=== PATIENT | male | born 2005 | race Caucasian/White ===

== ENCOUNTER 2024-10-31 07:34 | Emergency (ER) | payer OTHER, SELFPAY ==
[2024-10-31 07:40] VITALS: BP 133/84; PULSE 86; RESP 14; TEMP 36.8; O2SAT 100
--- NOTE | 2024-10-31 08:26 | ED_ITS ---
HPI - Wound/Laceration General Chief Complaint: Wound/Laceration Stated Complaint: possible stitches on right Thumb x 1 day Time Seen by Provider: 10/31/24 08:04 Source: patient Mode of arrival: Family Vehicle History of Present Illness HPI narrative: Subjective: Pt presents to the ER with a past medical history significant for no known medical conditions. Arianne, the patient, sustained a laceration to the R thumb approximately 12 hours ago while cutting [employer] sprouts with a serrated spatula. The injury occurred while the patient was on [place], which delayed their ability to seek immediate medical attention. The patient reports low pain, describing it as sore. Upon returning home, the patient applied a bandage to the wound but did not clean it with soap and water. The wound was rinsed off by medics at some point. The patient's tetanus shot is up to date. Related Data Allergies Allergy/AdvReac Type Severity Reaction Status Date / Time cephalexin (CEPHALEXIN) Allergy Unknown Unverified 10/31/24 07:50 Sulfa (Sulfonamide Allergy Unknown Unverified 10/31/24 07:50 Antibiotics) (SULFA (SULFONAMIDE ANTIBIOTICS)) Patient History Social History Smoking Status: Never smoker Smoking Status: Never smoker Exam Narrative Exam Narrative: R thumb - 1cm V shaped flap laceration on the extensor surface of the finger; no active bleeding; finger flexion and extension intact; no involvement of the nail; no FB Initial Vital Signs Initial Vital Signs: Vital Signs Temperature 98.2 F 10/31/24 07:40 Pulse Rate 86 10/31/24 07:40 Respiratory Rate 14 10/31/24 07:40 Blood Pressure 133/84 10/31/24 07:40 Pulse Oximetry 100 10/31/24 07:40 Oxygen Delivery Method Room Air 10/31/24 07:40 Course Vital Signs Vital signs: Vital Signs - 8 hr 10/31/24 07:40 Temperature 98.2 F Pulse Rate 86 Respiratory Rate 14 Blood Pressure 133/84 Pulse Oximetry 100 Oxygen Delivery Method Room Air MDM - Wound/Laceration MDM Narrative Medical decision making narrative: Pt interviewed and examined. Discussed treatment options and he would like skin adhesive as he has an aversion to needles. Finger soaked in Hibiclens x 15 minutes. 2 thin layers of skin adhesive applied. Finger splint applied for protection. Stable for discharge. Discharge Plan Departure Patient Disposition: Home Clinical Impression: Laceration of thumb Qualifiers: Encounter type: initial encounter Damage to nail status: without damage Foreign body presence: without foreign body Laterality: right Qualified Code(s): S61.011A - Laceration without foreign body of right thumb without damage to nail, initial encounter Activity Restrictions/Additional Instructions: Keep wound clean and dry. Glue should just come off on its own in a few days. Use finger splint to protect finger. Watch for signs of infection. Take Ibuprofen as needed for pain. Stand Alone Forms: Patient Portal/API
--- NOTE | 2024-10-31 08:41 | PC.NURSE ---
Cut finger with knife; pt states he did not wash hand.
[2024-10-31 08:42] VITALS: RESP 16
--- NOTE | 2024-10-31 08:43 | PC.NURSE ---
Aluminum finger splint applied to right thumb per md request
== END 2024-10-31 08:43 | disposition home or self-care (01) ==
PROVIDERS: Emergency Provider Emergency Medicine; Family Provider Nurse Practitioner
DX: S61.011A Laceration without foreign body of right thumb without damage to nail, initial encounter (principal)
CPT/HCPCS: 12001; 99281; 99282

== ENCOUNTER 2024-11-02 16:39 | Emergency (ER) | payer OTHER, SELFPAY ==
[2024-11-02 16:42] VITALS: BP 150/84; PULSE 87; RESP 16; TEMP 37.1; O2SAT 100; BMI 21.6
--- NOTE | 2024-11-02 18:04 | DI.RAD.S_ITS ---
PROCEDURE: XR FINGER RT MIN 2V INDICATIONS: wound infection TECHNIQUE: AP hand, 2 views of the 1st finger(s) acquired. COMPARISON: None. FINDINGS: Bones: No fractures or dislocations. No suspicious bony lesions. Soft tissues: No suspicious soft tissue calcifications. No soft tissue gas seen. No radiopaque foreign body. IMPRESSION: No acute bony abnormality. No radiopaque foreign body. Dictated by: Zeyad Hudson M.D. on 11/02/2024 at 18:45 Approved by: Zeyad Hudson M.D. on 11/02/2024 at 18:46
[2024-11-02 20:27] VITALS: BP 157/84; PULSE 116; RESP 16; O2SAT 100
--- NOTE | 2024-11-02 22:39 | ED.RECABL ---
HPI - Recheck/Abnormal Lab/Rx General Chief Complaint: Recheck/Abnormal Lab/Rx Stated Complaint: Rt thumb possible infection Time Seen by Provider: 11/02/24 22:26 Source: patient Mode of arrival: Ambulatory History of Present Illness HPI narrative: 27-year-old male sustained injury laceration dorsum left thumb night, presented Sunday morning here and had skin glue closure. Now having increasing pain and swelling to the dorsal right thumb. No drainage. Wearing his finger splint. No fevers or chills. Has anaphylaxis reaction to sulfa antibiotics. Not currently taking any antibiotics. Allergy to cephalexin also listed, patient does not seem to remember what the reaction might be. Related Data Previous Rx's ?Medication ?Instructions ?Recorded clindamycin HCl 300 mg capsule 300 mg PO Q6H Dental infection 7 11/02/24 days #28 caps doxycycline hyclate 100 mg tablet 100 mg PO BID #14 tabs 11/02/24 Allergies Allergy/AdvReac Type Severity Reaction Status Date / Time cephalexin (CEPHALEXIN) Allergy Unknown Verified 11/02/24 16:42 Sulfa (Sulfonamide Allergy Unknown Swelling Verified 11/02/24 16:42 Antibiotics) (SULFA of (SULFONAMIDE ANTIBIOTICS)) Lip/Tongue/Throat Exam Narrative Exam Narrative: GENERAL: Well-developed patient, in mild distress. HEAD: Atraumatic. Normocephalic. EYES: Pupils equal round and reactive. Extraocular motions intact. No scleral icterus. No injection or drainage. ENT: Nose without bleeding, purulent drainage. Airway patent. NECK: Trachea midline. Non tender CARDIOVASCULAR: Regular rate and rhythm without murmurs, gallops, or rubs. RESPIRATORY: Clear to auscultation. Breath sounds equal bilaterally. No wheezes, rales, or rhonchi. GASTROINTESTINAL: Abdomen soft, non-tender, nondistended. EXTREMITIES: Left thumb small laceration site repair closed with skin glue, central 2-3 mm area possible fluctuance, could not express any fluid. No subungual hematoma obvious. Slight erythema medial aspect thumb, could be pressure effect from spider-like metal-foam thumb splint that was being worn. BACK: Nontender without deformity or crepitance. No flank tenderness. NEURO: AOx3. Motor functions grossly nonfocal. SKIN: No rash or erythema of visible areas Initial Vital Signs Initial Vital Signs: Vital Signs Temperature 98.7 F 11/02/24 16:42 Pulse Rate 87 11/02/24 16:42 Respiratory Rate 16 11/02/24 16:42 Blood Pressure 150/84 H 11/02/24 16:42 Pulse Oximetry 100 11/02/24 16:42 Oxygen Delivery Method Room Air 11/02/24 16:42 Course Orders Ordered: ED Orders 11/02/24 18:04 XR finger RT min 2V Stat Discontinued Medications Cephalexin HCl (Cephalexin 250 Mg Capsule) 500 mg PO NOW ONE Stop: 11/02/24 22:53 Last Admin: 11/02/24 23:00 Dose: Not Given Documented By: NICOLE Clindamycin HCl (Clindamycin 150 Mg Capsule) 300 mg PO NOW ONE Stop: 11/02/24 22:56 Last Admin: 11/02/24 23:11 Dose: 300 mg Documented By: NICOLE Doxycycline Hyclate (Doxycycline Hyclate 100 Mg Tablet) 100 mg PO NOW ONE Stop: 11/02/24 22:53 Last Admin: 11/02/24 23:11 Dose: 100 mg Documented By: NICOLE Vital Signs Vital signs: Vital Signs - 8 hr 11/02/24 20:27 11/02/24 23:25 Pulse Rate 116 H 62 Respiratory Rate 16 16 Blood Pressure 157/84 H 122/80 Pulse Oximetry 100 98 Oxygen Delivery Method Room Air Room Air MDM - Recheck/Abnormal Lab/Rx MDM Narrative Medical decision making narrative: Left thumb laceration recent repair with increasing pain, possible scant amount small 2-3 mm fluctuance. Offered incision and drainage, declined. Offered needle aspiration, declined. Not currently on antibiotics. X-ray without obvious fracture/foreign body. Trial of oral antibiotics. History of allergies to cephalexin and sulfa antibiotics. Oral dose of clindamycin and doxycycline given, prescription sent for both antibiotics 7 day course. Advised wound check in the next couple of days at his home [facility]. Might require incision and drainage. Return precautions discussed. Discharge Plan Departure Patient Disposition: Home Clinical Impression: Cellulitis of left thumb Activity Restrictions/Additional Instructions: Recent skin glue laceration repair left thumb, with subsequent redness and swelling. Suspected infection. We discussed opening of the wound with an incision, hold for now. X-ray did not show any obvious bony injury or foreign body material. Trial of antibiotics for now. History of sulfa allergy, and also cephalexin as listed as an allergy on your medication list. Oral antibiotic clindamycin and doxycycline antibiotics given 1st dose in the emergency department, with prescription sent to your [facility] pharmacy for further doses. Take antibiotics as directed. Recheck in [facility] in 2 days. You might need to have the wound area opened up if there is any pus developing in the wound. Recheck earlier to this/nearest emergency department for any change worsening symptoms or any concerns prior. We discussed opening the wound with an incision, declined for now. We discussed aspirating the wound with a needle, declined for now. Wound check advised in [facility] in 2 days. Return precautions discussed. Prescriptions: New doxycycline hyclate 100 mg tablet 100 mg PO BID Qty: 14 0RF clindamycin HCl 300 mg capsule 300 mg PO Q6H 7 Days Qty: 28 0RF Stand Alone Forms: Patient Portal/API
[2024-11-02] MEDS: DOXYCYCLINE HYCLATE 100 MG TABLET PO (23:11)
[2024-11-02] MEDS: CLINDAMYCIN 150 MG CAPSULE 300 MG PO (23:11)
[2024-11-02 23:25] VITALS: BP 122/80; PULSE 62; RESP 16; O2SAT 98
== END 2024-11-02 23:26 | disposition home or self-care (01) ==
PROVIDERS: Emergency Provider Emergency Medicine; Family Provider Nurse Practitioner
DX: L03.012 Cellulitis of left finger (principal)
CPT/HCPCS: 73140; 99283